=== PATIENT | female | born 1990 | race Caucasian/White ===

== ENCOUNTER 2016-04-23 16:17 | Emergency (ER) | payer MEDICAID, OTHER ==
[~2016-04-23] VITALS: Ht 152.4 cm; Wt 160.0 kg
[2016-04-23 16:24] VITALS: BP 132/86; PULSE 89; RESP 16; O2SAT 99
--- NOTE | 2016-04-23 17:20 | ED.REPORT ---
HPI-URI / Cough / Cold Date of Service Apr 23, 2016 ED Provider: Anders Cali PA-C Vera is a 25 female presents with chief complaint of influenza. She reports approximately 6 day history of body aches, cough, headache, sore throat, dry mouth. She is in the urgent care 3 days ago and diagnosed with influenza. She is concerned because she is not improving. Denies chest pain, shortness of breath, wheezing, abdominal pain, vomiting, diarrhea. Did not receive Tamiflu, but was given codeine cough syrup. Nursing Notes Stated Complaint: FLU SYMPTONS Chief Complaint: FLU/Cold Symptoms Nursing Notes Reviewed: Yes Allergies: Coded Allergies: amoxicillin (Verified Allergy, Unknown, 04/23/16) Scheduled PRN Benzonatate (Tessalon Perle) 100 Mg Capsule 100 MG PO TID PRN PRN For Cough General Time Seen by MD: 16:36 Chief Complaint Other (influenza) Past Medical History Past Medical History Denies Denies: Asthma, Diabetes mellitus Review of Systems Negative unless otherwise stated in history of present illness Physical Exam General: Well developed, well nourished, no acute distress. Head: Atraumatic, normocephalic. Eyes: No scleral icterus or injection. No discharge. Vision grossly intact. ENT: Voice clear, hearing grossly intact. Respiratory: Regular rate and rhythm. Breath sounds present, mild wheeze, equal bilaterally, no rhonchi or rales. Cardiovascular: Regular rate and rhythm, without murmur, gallop or rub. No pedal edema. Gastrointestinal: Abdomen flat and non-tender without guarding or rebound. Bowel sounds normoactive. Skin: Warm and dry. Neurological: Grossly nonfocal. Psychological: alert and oriented. Speech appropriate, linear and logical. Behavior appropriate. Initial Vital Signs Vital Signs (First) Date Time Temp Pulse Resp B/P Pulse Ox O2 Delivery O2 Flow Rate FiO2 04/23/16 16:24 37.3 89 16 132/86 99 Room Air Initial VS: Reviewed Re-Eval/Medical Decision Med Decision/Clinical Course Med Decision/Clinical Course: In brief this is otherwise healthy 24-year-old patient who presents with a six-day history of body aches, cough, headache, sore throat. Diagnosed with influenza here 3 days ago. Told to go to the ED if she does not feel better. Symptoms are not resolving quickly as she would like. Was not treated with Tamiflu and is almost out of her codeine cough syrup. History and physical is generally reassuring, slight wheezes bilaterally in the lungs lungs with no rales or rhonchi. Advised patient to stop taking codeine cough syrup to help the dry mouth. Provided prescription for Tessalon Perles. The advice regarding [id number] symptomatic care. Provided follow-up referral. Discharge & Departure Impression: Primary Impression: Influenza Disposition: Home Discharge Condition All VS Reviewed: Yes Condition: Stable Patient Instructions: Influenza (ED) Additional Instructions: Evaluation for influenza and emergency department today. Based on your report of being diagnosed with influenza at the urgent care 3 days ago, I believe your symptoms are a continuation of your flu. History and physical are generally reassuring, vital signs within normal limits. I think it is unlikely that you have developed a pneumonia at this point. I believe there is stable and safe for discharge to home. Treatment is symptomatic. I recommend [id number] Robitussin extra strength nighttime DM as a medication to help you sleep at night. If you local pharmacy does not stock this, speak to the pharmacist and asked them to recommend something similar. I have given you a prescription for Tessalon Perles to help you with a cough during the day. I also recommend 400 mg of ibuprofen (Advil, Motrin) every 6 hours, or 1000 mg of acetaminophen ( Tylenol) every 6 hours. These drugs can be taken at the same time for more severe pain. I will provide you with a referral to primary care provider. Please contact them on Tuesday to arrange follow-up early next week to be sure recovery is progressing as expected. Return to emergency department for any new or worsening symptoms including repeated vomiting, high fever, shortness of breath or chest pain. Referrals: Dorys Marquis PAC EDSupervising Provider for APC: Garry Torres MD, Seth PA-C Apr 23, 2016 17:20
[2016-04-23] MEDS ORDERED: BENZ-12 PO (17:23)
== END 2016-04-23 18:15 | disposition home or self-care (01) ==
LOC: SED 16:17
DX: J11.1 Influenza due to unidentified influenza virus with other respiratory manifestations (principal); Z88.0 Allergy status to penicillin